=== PATIENT | female | born 1960 | race Caucasian/White ===

== ENCOUNTER 2017-03-09 05:26 | Day surgery (SDC) | payer BC ==
[2017-03-09] MEDS ORDERED: Dextrose 5%-Lactated Ringers 1,000 ML IV SCH (06:00)
[2017-03-09] MEDS ORDERED: Ondansetron 4 MG/2 ML SDV ONE (06:20)
[2017-03-09] MEDS ORDERED: Dexamethasone 4 MG/ML SDV ONE (06:20)
[2017-03-09] MEDS ORDERED: Propofol 200 MG/20 ML SDV ONE ×2 (06:20→07:42)
[2017-03-09] MEDS ORDERED: Midazolam 1 MG/ML 2 ML SDV ONE (06:23)
[2017-03-09 08:55] VITALS: BP 111/69
--- NOTE | 2017-03-11 14:14 | OR ---
DATE OF PROCEDURE: 03/09/2017 PREOPERATIVE DIAGNOSIS: History of colon polyps. POSTOPERATIVE DIAGNOSIS: Normal colonoscopic examination (poor colonoscopy prep). OPERATIVE PROCEDURE: Colonoscopy. ANESTHESIA: IV sedation. INDICATION FOR PROCEDURE: A 56-year-old female presenting with a history of previously identified colon polyps. She did undergo colonoscopy with biopsies and/or polypectomy as indicated. Potential risks including bleeding and perforation were discussed, and the patient wishes to proceed. DETAILS OF PROCEDURE: The patient was taken to the operating room, placed in the left lateral decubitus position. IV sedation was administered after which the initial digital rectal exam was performed and was unremarkable. Colonoscope was then passed into the rectum with retroflexion revealing uncomplicated hemorrhoidal columns. The scope was eventually passed to the level of the cecum. The prep in this case was actually fairly poor, there being quite a bit of liquid stool as well as some scattered solid stool, perhaps maybe 20% of the mucosal surface was not very adequately visualized showing any large polyps or more significant tumors that would be identified with the small polyps removed and could easily be missed in this situation. To that level, however, no abnormalities were noted. The scope was then withdrawn, the above findings reconfirmed, and the procedure then concluded. Recommendation would be to repeat the colonoscopy in 5 years. It might be worthwhile at some point to get a fit test or other noninvasive screening procedure for colon pathology in the interim. Yomi Aguirre MD /[id number]
== END 2017-03-09 09:32 | disposition home or self-care (01) ==
LOC: JP.SDS 05:26
PROVIDERS: ATTEND Surgery
DX: Z12.11 Encounter for screening for malignant neoplasm of colon (principal); Z86.010 Personal history of colon polyps; I10 Essential (primary) hypertension; J45.909 Unspecified asthma, uncomplicated; J18.9 Pneumonia, unspecified organism; Z88.2 Allergy status to sulfonamides; Z88.8 Allergy status to other drugs, medicaments and biological substances; Z91.040 Latex allergy status; Z87.891 Personal history of nicotine dependence; Z90.49 Acquired absence of other specified parts of digestive tract; Z90.710 Acquired absence of both cervix and uterus; Z98.890 Other specified postprocedural states; Z98.51 Tubal ligation status; Z96.619 Presence of unspecified artificial shoulder joint
CPT/HCPCS: 45378; J1100; J2250; J2405; J2704; J7042

== ENCOUNTER 2020-04-30 08:31 | Day surgery (SDC) | payer BC ==
[2020-04-30] MEDS ORDERED: fentaNYL 100 MCG/2 ML SDV ONE (08:52)
[2020-04-30] MEDS ORDERED: Midazolam 1 MG/ML 2 ML SDV ONE (08:52)
[2020-04-30] MEDS ORDERED: Propofol 200 MG/20 ML SDV ONE (08:52)
[2020-04-30] MEDS ORDERED: Ampicillin/Sulbactam Na 3 GM in Sodium Chloride 0.9% 100 ML IV ONE (09:30)
[2020-04-30] MEDS ORDERED: Dextrose 5%-Lactated Ringers 1,000 ML IV SCH (09:30)
[2020-04-30 11:05] VITALS: BP 118/79; PULSE 53
--- NOTE | 2020-05-05 13:32 | OR ---
DATE OF PROCEDURE: 04/30/2020 SURGEON: Yomi Aguirre MD PREOPERATIVE DIAGNOSIS: Gastroesophageal reflux disease refractory to medical management. POSTOPERATIVE DIAGNOSES: 1. Small hiatal hernia with marked ulcerative gastroesophageal reflux disease. 2. Moderate antral gastritis. OPERATIVE PROCEDURE: Upper GI endoscopy with: 1. Biopsy of esophagogastric junction. 2. Biopsies of antrum for CLOtest. ANESTHESIA: IV sedation. INDICATION FOR PROCEDURE: A 59-year-old female presenting with worsening gastroesophageal reflux symptoms. Presently, she is on omeprazole 40 mg b.i.d. Plan is to proceed with upper GI endoscopy with biopsies and/or dilation as indicated. Potential risks including bleeding and perforation were discussed, and the patient wishes to proceed. DETAILS OF PROCEDURE: The patient was taken to the operating room and placed in a left lateral decubitus position. IV sedation was administered, after which the upper GI endoscope was passed orally through the length of the esophagus into the stomach with retroflexion view of the fundus, and thereafter through the pyloric channel and into the junction of the 3rd and 4th portions of the duodenum. Findings included normal hypopharynx, larynx, upper esophageal sphincter, and esophageal body. In the distal esophagus, there is a small hiatal hernia in the 1 to 2 cm range, but with quite striking ulcerative gastroesophageal reflux disease with the ulcers extending up to 2 to 3 cm above the mucosal esophagogastric junction. There was some upward extension of the corner mucosa, suggestive of some Campos's esophagus as well. No stricturing or plaque formation to suggest a neoplastic change. Within the stomach, there are patchy reddened areas in the antrum. Otherwise, the pyloric channel and proximal duodenum were unremarkable. At this point, biopsies were obtained from the antrum and sent for CLOtest for H pylori. Multiple biopsies were then obtained from esophagogastric junction and sent for histologic evaluation, and the remainder of the biopsy sites were seen, and the procedure was then concluded. The patient was taken to the recovery room in satisfactory condition. A discussion was held post procedure with the patient and family member, and plan will be to do the laparoscopic Manda fundoplication next , given the severe reflux disease and refractoriness of it to medical management. Yomi Aguirre MD /[id number] [facility]
== END 2020-04-30 11:08 | disposition home or self-care (01) ==
LOC: JP.SDS 08:31
PROVIDERS: ATTEND Surgery
DX: K29.50 Unspecified chronic gastritis without bleeding (principal); K21.0 Gastro-esophageal reflux disease with esophagitis; K44.9 Diaphragmatic hernia without obstruction or gangrene; K31.89 Other diseases of stomach and duodenum; K22.10 Ulcer of esophagus without bleeding; J44.9 Chronic obstructive pulmonary disease, unspecified; I10 Essential (primary) hypertension; F32.9 Major depressive disorder, single episode, unspecified; Z88.8 Allergy status to other drugs, medicaments and biological substances
CPT/HCPCS: 43239; 87081; 88305; J0295; J2250; J2704; J3010; J7050; J7121

== ENCOUNTER 2020-05-06 09:44 | Day surgery (SDC) | payer BC ==
[2020-05-06] MEDS ORDERED: Acetaminophen 500 MG Tab PO ONE (10:00)
[2020-05-06] MEDS ORDERED: Rocuronium 50 MG/5 ML Vial ONE (10:14)
[2020-05-06] MEDS ORDERED: Succinylcholine 200 MG/10 ML MDV ONE (10:14)
[2020-05-06] MEDS ORDERED: Glycopyrrolate 0.2 MG/ML 5 ML MDV ONE (10:14)
[2020-05-06] MEDS ORDERED: Propofol 200 MG/20 ML SDV ONE (10:14)
[2020-05-06] MEDS ORDERED: Neostigmine Methylsulfate 1 MG/ML 5 ML Syringe ONE (10:14)
[2020-05-06] MEDS ORDERED: Dexamethasone 4 MG/ML SDV ONE (10:14)
[2020-05-06] MEDS ORDERED: Ondansetron 4 MG/2 ML SDV ONE (10:14)
[2020-05-06] MEDS ORDERED: fentaNYL 250 MCG/5 ML SDV ONE (10:14)
[2020-05-06] MEDS ORDERED: Dextrose 5%-Lactated Ringers 1,000 ML IV SCH (10:15)
[2020-05-06] MEDS ORDERED: ALBUTEROL INH ONE (10:30)
[2020-05-06] MEDS ORDERED: ceFAZolin 2 GM in Premix Bag 1 BAG IV ONE (11:15)
[2020-05-06] MEDS ORDERED: Albuterol/Ipratropium 3.0-0.5 MG/3 ML Neb Soln NEB ONE (11:30)
[2020-05-06] MEDS ORDERED: fentaNYL 100 MCG/2 ML SDV ONE (12:09)
[2020-05-06] MEDS ORDERED: HYDROmorphone 0.5 MG/0.5 ML Syringe IVPUSH PRN (14:00)
[2020-05-06] MEDS ORDERED: Ondansetron 4 MG/2 ML SDV IVPUSH PRN (14:00)
[2020-05-06] MEDS ORDERED: HYDROmorphone 1 MG/ML Syringe IV PRN (14:00)
[2020-05-06] MEDS ORDERED: Metoclopramide 10 MG/2 ML SDV IVPUSH PRN (14:00)
[2020-05-06] MEDS: HYDROmorphone 2 MG Tab PO PRN ×3 (14:26→23:35)
[2020-05-06] MEDS: Acetaminophen 500 MG Tab PO SCH ×2 (15:33→22:09)
[2020-05-06] MEDS ORDERED: Pantoprazole 40 MG Vial IVPUSH SCH (16:00)
[2020-05-06] MEDS: ceFAZolin 2 GM in Premix Bag 1 BAG IV SCH (17:11)
[2020-05-06] MEDS: Dextrose 5%-Lactated Ringers 1,000 ML IV SCH (19:33)
[2020-05-06] MEDS: THEOPHYLLINE 300 MG PO SCH (22:03)
[2020-05-06] MEDS: Gabapentin 400 MG Cap PO SCH (22:04)
[2020-05-06] MEDS: Metoprolol Tartrate 50 MG Tab PO SCH (22:05)
[2020-05-06] MEDS: Topiramate 25 MG Tab PO SCH (22:11)
[2020-05-06] MEDS: Topiramate 100 MG Tab PO SCH (22:12)
[2020-05-07] MEDS: Dextrose 5%-Lactated Ringers 1,000 ML IV SCH (02:21)
[2020-05-07] MEDS: ceFAZolin 2 GM in Premix Bag 1 BAG IV SCH ×2 (02:22→10:10)
[2020-05-07] MEDS: Acetaminophen 500 MG Tab PO SCH ×2 (04:02→10:09)
[2020-05-07] MEDS: HYDROmorphone 2 MG Tab PO PRN ×3 (04:03→12:04)
[2020-05-07] MEDS ORDERED: Dextrose 5%-Lactated Ringers 1,000 ML IV SCH (07:29)
[2020-05-07] MEDS: Gabapentin 400 MG Cap PO SCH (09:37)
[2020-05-07] MEDS: Topiramate 100 MG Tab PO SCH (09:38)
[2020-05-07] MEDS: Topiramate 25 MG Tab PO SCH (09:41)
[2020-05-07] MEDS: Metoprolol Tartrate 50 MG Tab PO SCH (09:42)
--- NOTE | 2020-05-07 09:50 | PN ---
DATE OF SERVICE: 05/07/2020 SUBJECTIVE: Marietta had laparoscopic Manda yesterday. Pain has been controlled. She is tolerating a clear liquid diet. Oral intake was 420 and urine output 1075. She has had a bowel movement. Up independently in her room. REVIEW OF SYSTEMS: Remainder of review of systems negative for any pertinent positives and negatives. OBJECTIVE: GENERAL: Marietta is a pleasant 59-year-old female, alert and orientated. VITAL SIGNS: TPR at 07:56, 98.3; 76; 16; blood pressure 154/81. HEENT: Negative. NECK: Supple. HEART: Regular rate and rhythm. LUNGS: Clear. ABDOMEN: Dressings dry and intact. Abdominal binder is on. EXTREMITIES: Without peripheral edema. ASSESSMENT: Laparoscopic Manda fundoplication and repair of paraesophageal diaphragmatic hernia. POSTOPERATIVE DIAGNOSIS: Gastroesophageal reflux disease refractory to medical management with large paraesophageal diaphragmatic hernia. Date of surgery: 05/06/2020. Surgeon: Yomi Aguirre MD. PLAN: 1. Dressing off, may shower. 2. Consult with dietitian for full liquid diet for 1 month. 3. Decrease IV to 100 mL per hour. If oral intake and pain well managed, may be discharged later this afternoon. Liza Francis PA-C /[id number]
[2020-05-07] MEDS ORDERED: FLU VACC QS2020-21(6MOS UP)/PF 60 MCG/0.5 ML SYRINGE IM ONE (10:00)
[2020-05-07] MEDS: THEOPHYLLINE 300 MG PO SCH (11:11)
[2020-05-07 11:15] VITALS: BP 151/87; PULSE 73
--- NOTE | 2020-05-08 00:46 | DISCH ---
ADMISSION DIAGNOSIS: Gastroesophageal reflux disease, refractory to medical management. DISCHARGE DIAGNOSES: Laparoscopic Manda fundoplication and repair of paraesophageal diaphragmatic hernia. POSTOPERATIVE DIAGNOSES: 1. Gastroesophageal reflux disease refractory to medical management. 2. Large paraesophageal diaphragmatic hernia. Date of surgery 05/06/2020. Surgeon: Yomi Aguirre MD. HISTORY: Marietta Puentes is a pleasant 59-year-old female with gastroesophageal reflux disease refractory to medical management. After preoperative evaluation and discussion of possible risks and possible complications, she wished to proceed with surgical procedure. HOSPITAL COURSE: Marietta had her surgery on 05/06/2020. She had no operative complications. On postoperative day #1, her oral intake was adequate. Pain was managed. Activity was good. She was able to be discharged to home. PHYSICAL EXAMINATION: GENERAL: Marietta is a pleasant 59-year-old female, alert and orientated. VITAL SIGNS: Height is 5 feet 4.7 inches. Weight is 125 pounds. TPR: 99, 73, 18. Blood pressure 151/87. HEENT: Negative. NECK: Supple. HEART: Regular rate and rhythm. LUNGS: Clear. ABDOMEN: Dressings dry and intact. Abdominal binder is on. EXTREMITIES: Without peripheral edema. DISPOSITION: Discharged to home. CONDITION: Stable and improving. FOLLOW UP APPOINTMENT: 05/19/2020 at 8:30 a.m. with Yomi Aguirre MD, at [facility]. HOME MEDICATIONS: 1. Dilaudid 2 mg every 6 hours p.r.n. pain, #28. 2. Tylenol Extra Strength 1000 mg q.6 hours p.r.n. pain. 3. Zofran ODT 4 mg every 4 hours p.r.n. nausea, #30. She is to resume home medications of; 1. Zovirax 800 mg 3 times a day p.r.n. viral outbreak. 2. Proventil inhaler 3 mL inhalation p.r.n. wheezing. 3. Albuterol inhaler 2 puffs every 6 hours p.r.n. shortness of breath. 4. Elavil 150 mg oral at bedtime. 5. Premarin 1.25 mg oral daily. 6. Neurontin 800 mg oral twice daily. 7. Lopressor 50 mg oral twice daily. 8. Multivitamin 1 daily. 9. Nitrostat 0.4 sublingual as directed p.r.n. chest pain. 10.Omeprazole 40 mg twice daily. 11.Maxalt 10 mg oral as directed p.r.n. headache. 12.Silvadene cream 1 applicator topical p.r.n. barroso. 13.Theophylline 150 mg oral twice daily. 14.Topamax 150 oral twice daily. DIET: Full liquid diet for 2 weeks until 05/22/2020. ACTIVITY: No lifting over 10 pounds for 2 weeks. OTHER ACTIVITY: Walk 6 times daily inside your home. Driving: Do not drive for 1 week or while on pain medication. Shower/bathing: May shower. DISCHARGE INSTRUCTIONS: Notify provider if any fever, increased pain, swelling, redness, drainage, nausea, or vomiting. Keep site clean and dry Special Instructions: Wear abdominal binder for 2 weeks and then as tolerated and use incentive spirometer 10 times every hour while awake.
--- NOTE | 2020-05-12 15:56 | OR ---
DATE OF PROCEDURE: 05/06/2020 SURGEON: Yomi Aguirre MD PREOPERATIVE DIAGNOSIS: Gastroesophageal reflux disease refractory to medical management. POSTOPERATIVE DIAGNOSIS: Gastroesophageal reflux disease refractory to medical management associated with large paraesophageal diaphragmatic hernia. OPERATIVE PROCEDURE: Laparoscopic Manda fundoplication with repair of paraesophageal diaphragmatic hernia with mesh (28643). ANESTHESIA: General. INDICATION FOR PROCEDURE: A 59-year-old female presenting with worsening gastroesophageal reflux disease refractory to medical management. After preop evaluation and discussion, she wished to proceed with a Manda fundoplication. Potential risks of the procedure including bleeding, infection, injury to the viscera in the area, possible problems with fundoplication such as dysphagia, gas bloat syndrome, disorders of gastric emptying rate as well as possible incomplete relief of reflux symptoms were reviewed, and the patient wishes to proceed. DETAILS OF PROCEDURE: The patient was taken to the operating room and placed in the supine position. After general endotracheal anesthesia was induced, she was converted to a lithotomy position and the abdomen prepped and draped. At 15 cm inferior and 5 cm left of the xiphoid process, transverse incision was made. Peritoneal cavity entered and inflated to 15 mmHg pressure with CO2. No underlying trocar insertion site injuries were seen. Bilateral transversus abdominis plane blocks were then placed and 4 additional trocars were then placed across the upper and mid abdomen. The liver was retracted anteriorly. The patient was noted to have a quite large diaphragmatic hernia with major paraesophageal component to it with prolapse of some omentum as well as the perigastric fat and gastric fundus in a plane anterior to the course of the esophagus. Hernia was reduced and peritoneum overlying incised and reflected downward. The crura were then from the distal esophagus on each side and a retroesophageal window established. With further resection, the soft tissue attachments of the esophagus were then taken with Harmonic scalpel such that eventually a 5 cm segment of intraabdominal esophagus was achieved. The posterior crural repair was then accomplished with a series of 0 Ethibond sutures reinforced with PTFE pledgets. Because of the laxity of the musculature, a Phasix ST mesh was then used to reinforce the crural repair. This was cut in a small horseshoe-shaped configuration and laid across the crural repair, then along the crura on each side where it was fixed with titanium tacking screws. At this point, the omentum was divided away from the greater curvature of the stomach. This dissection with Harmonic scalpel then continued proximally across the short gastric vessels including the highest and posterior short gastric vessels. The fundus appeared to be satisfactorily mobile at that point and was retrieved through the retroesophageal window. The weight loss centre manager then passed a guidewire orally across the esophagus and into the stomach. Over this, a 54-Bolivian Savary dilator was placed. A 3-stitch 2 cm fundoplication was accomplished with 0 Ethibond sutures reinforced with PTFE pledgets. Two sutures were then placed into the fundoplication of the overlying diaphragm to help fix it in position after which the dilator and wire were removed. The fundoplication felt to be satisfactorily floppy. At that point, no further problems were noted. Trocars removed, the peritoneal cavity deflated. Incisions were closed with 4-0 Vicryl skin stitch and dressing applied. The patient was taken to the recovery room in satisfactory condition. Physician home care assistant, Liza Francis, played an essential role in assisting in this case, helping to position the patient, retract structures as needed as well as suturing and cutting sutures when indicated. Her presence improved patient safety and decreased the operative time. Yomi Aguirre MD /[id number]
== END 2020-05-07 12:15 | disposition home or self-care (01) ==
LOC: JP.SDS 09:44 → JP.MS 12:50 → JP.SDS 05-07 12:15
PROVIDERS: ATTEND Surgery
DX: K44.9 Diaphragmatic hernia without obstruction or gangrene (principal); K21.00 Gastro-esophageal reflux disease with esophagitis, without bleeding; J44.9 Chronic obstructive pulmonary disease, unspecified; Z90.49 Acquired absence of other specified parts of digestive tract; Z98.890 Other specified postprocedural states; Z88.2 Allergy status to sulfonamides; Z91.040 Latex allergy status; Z79.899 Other long term (current) drug therapy; Z88.8 Allergy status to other drugs, medicaments and biological substances
CPT/HCPCS: 43282; 94640; 94762; A9270; C1713; C1781; C9113; J0171; J0330; J0690; J1100; J2405; J2704; J2710; J2795; J3010; J3490; J7050; J7121; J7620-GY

== ENCOUNTER 2024-10-23 07:23 | Day surgery (SDC) | payer MEDICARE ==
[2024-10-23] MEDS: Lactated Ringers 1,000 ML IV SCH (08:11)
[2024-10-23] MEDS ORDERED: Midazolam 1 MG/ML 2 ML SDV ONE (08:28)
[2024-10-23] MEDS ORDERED: fentaNYL 50 MCG/ML SDV ONE (08:28)
[2024-10-23] MEDS ORDERED: Propofol 200 MG/20 ML SDV ONE ×2 (08:28→09:31)
[2024-10-23 10:01] VITALS: PULSE 49
[2024-10-23 10:12] VITALS: BP 120/69
== END 2024-10-23 10:40 | disposition home or self-care (01) ==
LOC: JP.SDS 07:23
PROVIDERS: ATTEND Surgery
DX: D12.2 Benign neoplasm of ascending colon (principal); D12.8 Benign neoplasm of rectum; K63.5 Polyp of colon; K29.50 Unspecified chronic gastritis without bleeding; K22.89 Other specified disease of esophagus; K21.9 Gastro-esophageal reflux disease without esophagitis; J44.9 Chronic obstructive pulmonary disease, unspecified
CPT/HCPCS: 00813-QZ; 88305; J2250; J2704; J3010; J7120

== ENCOUNTER 2025-07-24 08:41 | Day surgery (SDC) | payer MEDICARE ==
[~2025-07-24 08:41] MED LIST: Midazolam 1 MG/ML 2 ML SDV ONE; Propofol 200 MG/20 ML SDV ONE; fentaNYL 50 MCG/ML SDV ONE
[2025-07-24] MEDS: Lactated Ringers 1,000 ML IV SCH (09:37)
[2025-07-24] MEDS ORDERED: Propofol 200 MG/20 ML SDV ONE (10:56)
[2025-07-24 12:19] VITALS: BP 144/78; PULSE 60
== END 2025-07-24 12:10 | disposition home or self-care (01) ==
LOC: JP.SDS 08:41
PROVIDERS: ATTEND Surgery
DX: D12.4 Benign neoplasm of descending colon (principal); K92.2 Gastrointestinal hemorrhage, unspecified; I10 Essential (primary) hypertension; Z88.8 Allergy status to other drugs, medicaments and biological substances; Z88.2 Allergy status to sulfonamides; Z91.040 Latex allergy status; Z79.899 Other long term (current) drug therapy
CPT/HCPCS: 00811; 45380; 45385; J2250; J2704; J3010; J7120; 88305